=== PATIENT | male | born 1950 | race Caucasian/White ===

== ENCOUNTER → 2022-05-07 12:41 | Outpatient (BNVA) | payer OTHER, MEDICARE, SELFPAY | PROVIDERS: PCP Nurse Practitioner Family; Visit Provider Nurse Practitioner Family | DX: Z13.89 Encounter for screening for other disorder (principal) ==

== ENCOUNTER → 2022-06-02 12:37 | Outpatient (REF) | payer MEDICARE, OTHER, SELFPAY | LOC: HO.SL 12:37 | PROVIDERS: Visit Provider Nurse Practitioner Family | DX: G47.52 REM sleep behavior disorder (principal); G47.33 Obstructive sleep apnea (adult) (pediatric); R06.83 Snoring; R40.0 Somnolence | CPT/HCPCS: 95806 ==